=== PATIENT | male | born 1995 | race Caucasian/White ===

== ENCOUNTER 2020-12-26 08:40 | Emergency (ER) | payer BC ==
[~2020-12-26] VITALS: Ht 185.4 cm; Wt 77.1 kg
[2020-12-26 08:43] VITALS: BP_SYST 121
--- NOTE | 2020-12-26 08:43 | NUR ---
Patient to ER bed 6 to gown for evaluation. Side rails up. Report given to CIPRIANO HUI.
--- NOTE | 2020-12-26 08:54 | NUR ---
ER DR. PERSON AT THE BEDSIDE EXAMINING PT
[2020-12-26] MEDS ORDERED: FAMOTIDINE 20 MG TABLET PO ONE (09:00)
[2020-12-26] MEDS ORDERED: NACL 0.9% 1,000 ML IV ONE (09:00)
[2020-12-26] MEDS ORDERED: MAG-AL HYDROX/SIMETH 30 ML UDC PO ONE (09:00)
[2020-12-26 09:42] LABS: BASOPHILS % (AUTO) 0.6 % (0.0-2.0); EOSINOPHILS # (AUTO) 0.2 K/uL (0.0-0.4); EOSINOPHILS % (AUTO) 2.8 % (0.0-4.0); HEMATOCRIT 46.8 % (36-54); HEMOGLOBIN 16.3 g/dL (14.0-18.0); LYMPHOCYTES % (AUTO) 14.3 % (20.5-51.5); MEAN CORPUSCULAR HEMOGLOBIN 30 pg (27-31); MEAN CORPUSCULAR HGB CONC 35 % (32-36); MEAN CORPUSCULAR VOLUME 87 fL (79.0-98.0); MONOCYTES # (AUTO) 0.4 K/uL (0.0-1.0); MONOCYTES % (AUTO) 6.2 % (1.7-9.3); NEUTROPHILS # (AUTO) 5.4 K/uL (1.8-7.7); NEUTROPHILS % (AUTO) 76.1 % (40.0-70.0); PLATELET COUNT (AUTO) 193 K/uL (130-430); RED CELL DISTRIBUTION WIDTH 12.9 % (9.0-15.0); WHITE BLOOD COUNT (AUTO) 7.1 K/uL (4.8-10.8)
[2020-12-26 09:51] LABS: CREATININE 0.82 mg/dL (0.55-1.30)
[2020-12-26 09:57] LABS: ALBUMIN 4.3 g/dL (3.4-4.8); BILIRUBIN,DIRECT 0.1 mg/dL (0.0-0.3); TOTAL BILIRUBIN 0.9 mg/dL (0.0-1.0)
[2020-12-26 10:27] VITALS: BP_SYST 105
--- NOTE | 2020-12-26 10:29 | NUR ---
Patient given written and verbal discharge instructions and verbalizes understanding. CORNELIA PERSON MD discussed with patient the results and treatment provided. Patient in stable condition. ID arm band removed. IV catheter removed intact and dressing applied, no active bleeding. Patient educated on pain management and to follow up with PMD. Pain Scale 0. Opportunity for questions provided and answered. Medication side effect fact sheet provided.
== END 2020-12-26 10:29 | disposition home or self-care (01) ==
LOC: SED 08:40
DX: R11.10 Vomiting, unspecified (principal); R19.7 Diarrhea, unspecified; Z20.822 Contact with and (suspected) exposure to COVID-19
CPT/HCPCS: 36415; 80048; 80076; 83690; 85025; 87426; 96360; 99283; J7030